=== PATIENT | male | born 1990 | race Hispanic/Latino ===

== ENCOUNTER 2018-05-20 15:09 | Emergency (ER) | payer SELFPAY ==
[~2018-05-20] VITALS: Ht 167.6 cm; Wt 83.9 kg
[2018-05-20] MEDS ORDERED: TETANUS/DIPHTHERIA TOX ADULT 0.5 ML SYR IM ONE (15:30)
--- NOTE | 2018-05-20 16:02 | Diagnostic Imaging Report ---
EXAM: FINGER RIGHT DATE: 05/20/2018 3:24 PM INDICATION: Injury fifth finger COMPARISON: None FINDINGS: On the lateral view only there is a faint lucency at the base of the middle phalanx of the fifth digit; however, no distinct abnormality is identified on the other views. IMPRESSION: Nonspecific lucency base of middle phalanx seen in one view only. Correlation for location of pain and mechanism recommended. 7-10 day radiographic follow-up recommended. Signed by: Dr. Fredi Fitzgerald MD on 05/20/2018 3:59 PM
[2018-05-20] MEDS ORDERED: BACITRACIN ZINC 0.9GM TP ONE (17:13)
[2018-05-20] MEDS ORDERED: KEFLEX500 MG PO (17:44)
[2018-05-20] MEDS ORDERED: TYLENOL WITH C1 EACH PO (17:44)
[2018-05-20] MEDS ORDERED: TETANUS/DIPHTHERIA TOX ADULT 0.5 ML SYR ONE (18:30)
[2018-05-20 18:42] VITALS: BP 122/74
== END 2018-05-20 18:43 | disposition home or self-care (01) ==
LOC: ER 15:09
DX: S67.196A Crushing injury of right little finger, initial encounter (principal); S61.316A Laceration without foreign body of right little finger with damage to nail, initial encounter; W31.89XA Contact with other specified machinery, initial encounter; Y93.89 Activity, other specified; Y92.019 Unspecified place in single-family (private) house as the place of occurrence of the external cause; Z23 Encounter for immunization
CPT/HCPCS: 90471; 90714; 99284